=== PATIENT | male | born 1980 | race Caucasian/White ===

== ENCOUNTER 2016-10-11 20:53 | Emergency (ER) | payer MEDICAID ==
[2016-10-11 21:00] VITALS: TEMP 98.1
--- NOTE | 2016-10-11 21:27 | CPEKG ---
Heart Rate: 84 RR Interval: 714 P-R Interval: 156 QRSD Interval: 84 QT Interval: 364 QTC Interval: 431 P [place]: 41 QRS [place]: 45 T Wave [place]: 20 EKG Severity - NORMAL ECG - EKG Impression: SINUS RHYTHM Electronically Signed By: Oumou Glass 12-Oct-2016 07:17:43
[2016-10-11 22:08] LABS: % IMMATURE GRANULYOCYTES 0.3 % (0.0-1.1); ABSOLUTE IMMATURE GRANULOCYTES 0.02 10^3/uL (0.00-0.10); ADD DIFF? NO; ADD MORPH? NO; ADD SCAN? NO; ATYPICAL LYMPHOCYTE FLAG 10 (0-99); FRAGMENT RBC FLAG 0 (0-99); HEMATOCRIT 44.7 % (40.0-51.0); HEMOGLOBIN 16.2 g/dL (13.7-17.5); LEFT SHIFT FLG 0 (0-99); LIPEMIA HEMOLYSIS FLAG 90 (0-99); MEAN CELL HEMOGLOBIN 32.3 pg (27.9-34.1); MEAN CELL HEMOGLOBIN CONCENTR. 36.2 g/dL (32.4-36.7); MEAN PLATELET VOLUME 9.2 fL (8.7-11.7); PLATELET CLUMPS FLAG 0 (0-99); PLATELET COUNT 255 10^3/uL (150-400); RED BLOOD CELL COUNT 5.02 10^6/uL (4.40-6.38); RED CELL DISTRIBUTION WIDTH 12.2 % (11.5-15.2)
[2016-10-11] MEDS ORDERED: LORazepam 2 MG/ML INJ IVP ONE (22:26)
--- NOTE | 2016-10-11 22:31 | EDPHY ---
H & P Stated Complaint: Anxiety, nausea, high BP, chest pain Time Seen by Provider: 10/11/16 22:17 HPI/ROS: HPI The patient presents with anxiety, nausea, cold sweats which have been present for the last 1 day in the setting of increased social stressors. His symptoms have been intermittent, moderate in severity under associated with elevated blood pressure. He has a blood pressure cuff at home which he uses sporadically. His blood pressures are normally 130s over 90s. However today they were as high as 150/130. He does not have any chest pain. He does have some left-sided back pain which has been present for today and has been intermittent.. REVIEW OF SYSTEMS Constitutional: No fever, no chills. Eyes: No discharge. ENT: No sore throat. Cardiovascular: No chest pain, no palpitations. Respiratory: No cough, no shortness of breath. Gastrointestinal: No abdominal pain, no vomiting. Genitourinary: No hematuria. Musculoskeletal: No back pain. Skin: No rashes. Neurological: No headache. PMHx: Anxiety, sees a therapist, has been recommended to start a medication though has not been able to see a prescribing physician yet. Soc Hx: No alcohol use, occasional marijuana use though none in the last few days PHYSICAL General Appearance: Alert, no distress Eyes: Pupils equal and round no pallor or injection ENT, Mouth: Mucous membranes moist Respiratory: There are no retractions, lungs are clear to auscultation Cardiovascular: Regular rate and rhythm Gastrointestinal: Abdomen is soft and non-tender, no masses, bowel sounds normal Neurological: A&O, moves all extremities Skin: Warm and dry, no rashes Musculoskeletal: Neck is supple non tender Extremities: symmetrical, full range of motion Psychiatric: Patient is oriented X 3, there is no agitation Source: Patient Exam Limitations: No limitations - Personal History Current Tetanus/Diphtheria Vaccine: Yes Current Tetanus Diphtheria and Acellular Pertussis (TDAP): Yes - Medical/Surgical History Hx Asthma: Yes Hx Chronic Respiratory Disease: No Hx Diabetes: No Hx Cardiac Disease: No Hx Renal Disease: No Hx Cirrhosis: No Hx Alcoholism: No Hx HIV/AIDS: No Hx Splenectomy or Spleen Trauma: No Other PMH: anxiety, pulmonary stenosis as child - Social History Smoking Status: Current every day smoker Constitutional: Initial Vital Signs Temperature (C) 36.7 C 10/11/16 20:56 Heart Rate 103 H 05/28/17 20:56 Respiratory Rate 16 10/11/16 20:56 Blood Pressure 176/114 H 10/11/16 20:56 O2 Sat (%) 99 10/11/16 20:56 O2 Delivery Mode Room Air Allergies/Adverse Reactions: Antihistamines - Alkylamine Allergy (Verified 10/11/16 20:56) Home Medications: Medication Instructions Recorded Lorazepam 1 mg PO BID PRN #8 tablet 10/11/16 Medical Decision Making - Diagnostics EKG Interpretation: EKG: Complete interpretation has been separately recorded in the [facility] archive. Summary impression: Normal sinus rhythm Differential Diagnosis: This is a 36-year-old male with history of anxiety who presents with increased anxiety associated with nausea and hypertension today. On exam, he is well- appearing, his blood pressure is slightly elevated. This could be related to anxiety, I doubt CAD as a cause. Plan for basic labs, EKG, trial of lorazepam. In the emergency room, labs were unremarkable. EKG was normal. 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 He was given a dose of Ativan with improvement in his blood pressure to a normal level. I feel he is likely suffering from increased anxiety due to increasing social stressors in his life. As he is up well followed by a therapist and plans to see a prescriber shortly. I will give him a short course of Ativan to treat his symptoms. He will be discharged from the ER in good condition. - Data Points Laboratory Results: Laboratory Results 10/11/16 21:53 10/11/16 21:53 10/11/16 10/11/16 21:53 21:53 WBC 7.55 10^3/uL 10^3/uL (3.80-9.50) RBC 5.02 10^6/uL 10^6/uL (4.40-6.38) Hgb 16.2 g/dL g/dL (13.7-17.5) Hct 44.7 % % (40.0-51.0) MCV 89.0 fL fL (81.5-99.8) MCH 32.3 pg pg (27.9-34.1) MCHC 36.2 g/dL g/dL (32.4-36.7) RDW 12.2 % % (11.5-15.2) Plt Count 255 10^3/uL 10^3/uL (150-400) MPV 9.2 fL fL (8.7-11.7) Neut % (Auto) 56.2 % % (39.3-74.2) Lymph % (Auto) 31.1 % % (15.0-45.0) [place] % (Auto) 8.1 % % (4.5-13.0) Eos % (Auto) 3.6 % % (0.6-7.6) Baso % (Auto) 0.7 % % (0.3-1.7) Nucleat RBC Rel Count 0.0 % % (0.0-0.2) Absolute Neuts (auto) 4.25 10^3/uL 10^3/uL (1.70-6.50) Absolute Lymphs (auto) 2.35 10^3/uL 10^3/uL (1.00-3.00) Absolute Monos (auto) 0.61 10^3/uL 10^3/uL (0.30-0.80) Absolute Eos (auto) 0.27 10^3/uL 10^3/uL (0.03-0.40) Absolute Basos (auto) 0.05 10^3/uL 10^3/uL (0.02-0.10) Absolute Nucleated RBC 0.00 10^3/uL 10^3/uL (0-0.01) Immature Gran % 0.3 % % (0.0-1.1) Immature Gran # 0.02 10^3/uL 10^3/uL (0.00-0.10) Sodium 138 mEq/L mEq/L (134-144) Potassium 4.2 mEq/L mEq/L (3.5-5.2) Chloride 108 mEq/L mEq/L (97-110) Carbon Dioxide 24 mEq/l mEq/l (22-31) Anion Gap 6 mEq/L L mEq/L (8-16) BUN 16 mg/dL mg/dL (7-23) Creatinine 1.2 mg/dL mg/dL (0.7-1.3) Estimated GFR > 60 Glucose 82 mg/dL mg/dL (70-100) Calcium 9.5 mg/dL mg/dL (8.5-10.4) Troponin I < 0.012 ng/mL ng/mL (0-0.034) Medications Given: Discontinued Medications Lorazepam (Ativan Injection) 1 mg IVP EDNOW ONE Stop: 10/11/16 22:27 Last Admin: 10/11/16 22:41 Dose: 1 mg Departure - Departure Disposition: Home, Routine, Self-Care Clinical Impression: Anxiety, Nausea, Elevated blood pressure reading Condition: Good Instructions: Anxiety (ED) Referrals: Carina Humphreys MD [[facility] [place] Primary Care Provider] - As per Instructions Prescriptions: Lorazepam 1 mg PO BID PRN #8 tablet PRN Reason: Anxiety
[2016-10-11 22:41] LABS: ANION GAP 6 mEq/L (8-16); CALCIUM 9.5 mg/dL (8.5-10.4); CARBON DIOXIDE 24 mEq/l (22-31); CHLORIDE 108 mEq/L (97-110); CREATININE 1.2 mg/dL (0.7-1.3); GLOMERULAR FILTRATION RATE > 60; GLUCOSE 82 mg/dL (70-100); POTASSIUM 4.2 mEq/L (3.5-5.2); SODIUM 138 mEq/L (134-144)
[2016-10-11 22:53] LABS: TROPONIN I < 0.012 ng/mL (0-0.034)
[2016-10-11 23:01] VITALS: BP 144/96; PULSE 84; RESP 14; O2SAT 96
== END 2016-10-11 23:17 | disposition home or self-care (01) ==
DX: F41.9 Anxiety disorder, unspecified (principal); R11.0 Nausea; R03.0 Elevated blood-pressure reading, without diagnosis of hypertension; J45.909 Unspecified asthma, uncomplicated; F17.200 Nicotine dependence, unspecified, uncomplicated
CPT/HCPCS: 96374; J2060

== ENCOUNTER 2016-12-12 13:37 | Emergency (ER) | payer MEDICAID, OTHER ==
--- NOTE | 2016-12-12 13:52 | EDPHY ---
H & P Stated Complaint: stabbing intermittent pains l ear Time Seen by Provider: 12/12/16 13:51 - Personal History Current Tetanus/Diphtheria Vaccine: Yes - Medical/Surgical History Hx Asthma: Yes Hx Chronic Respiratory Disease: No Hx Diabetes: No Hx Cardiac Disease: No Hx Renal Disease: No Hx Cirrhosis: No Hx Alcoholism: No Hx HIV/AIDS: No Hx Splenectomy or Spleen Trauma: No Other PMH: anxiety, pulmonary stenosis as child - Social History Smoking Status: Current every day smoker Constitutional: Initial Vital Signs Temperature (C) 37 C 12/12/16 13:40 Heart Rate 86 12/12/16 13:40 Respiratory Rate 17 12/12/16 13:40 Blood Pressure 158/102 H 12/12/16 13:40 O2 Sat (%) 96 12/12/16 13:40 O2 Delivery Mode Room Air Allergies/Adverse Reactions: Antihistamines - Alkylamine Allergy (Verified 10/11/16 20:56) Home Medications: Medication Instructions Recorded Lorazepam 1 mg PO BID PRN #8 tablet 10/11/16 Fluticasone Nasal [Flonase Nasal 2 sprays NASAL DAILY #1 mdi 12/12/16 [place] (RX)] oxyCODONE IR [Oxycodone Ir (*)] 5 - 10 mg PO Q6 PRN #20 tab 12/12/16 Medical Decision Making ED Course/Re-evaluation: CHIEF COMPLAINT: Left ear pain HISTORY OF PRESENT ILLNESS: 36-year-old gentleman who woke in the middle the night with sharp left ear pain that is intermittent. He has had some sinus and nasal congestion and maybe some allergies associated with that but denies any swimming or barotrauma. REVIEW OF SYSTEMS: A 10 point review of systems was performed and is negative with the exception of the elements mentioned in the history of present illness. PHYSICAL EXAM: HR, BP, O2 Sat, RR. Temp noted General Appearance: Alert, well hydrated, appropriate, and non-toxic appearing. Head: Atraumatic without scalp tenderness or obvious injury Eyes: Pupils equal, round, reactive to light and accommodation, EOMI, no trauma , no injection. Ears: Left ear is bulging slightly and has fluid behind the drum. There is no evidence of perforation there is no evidence of erythema. Right ear normal. Nose: Atraumatic, no rhinorrhea, clear. Throat: There is no erythema or exudates, no lesions, normal tonsils, mucus membranes moist. Neck: Supple, 2+ carotid upstroke, nontender, no lymphadenopathy. Respiratory: No retractions, no distress, no wheezes, and no accessory muscle use. Lungs are clear to auscultation bilaterally. Cardiovascular: Regular rate and rhythm, no murmurs, rubs, or gallops. Bilateral carotid, radial, dorsalis pedis, and posterior tibial pulses intact. Good capillary refill all extremities. Gastrointestinal: Abdomen is soft, nontender, non-distended, no masses, no rebound, no guarding, no peritoneal signs. Musculoskeletal: Normal active ROM of all extremities, atraumatic. Neurological: Alert, appropriate, and interactive. The patient has normal DTRs and non-focal cranial nerves, motor, sensory, and cerebellar exam. Skin: No rashes, good turgor, no nodules on palpation. Past medical history: Peptic ulcer disease Past surgical history: Noncontributory Family history: Noncontributory Social history: , employed, does not abuse tobacco drugs or alcohol DIFFERENTIAL DIAGNOSIS: Includes but is not limited to: Otitis media, otitis externa, barotrauma, eustachian tube congestion MEDICAL DECISION MAKING: This patient seems to have an infectious cause of eardrum bulging. He has sinus and nasal congestion. I will start him on Mucinex, Flonase, and some pain medicine until the ear pain resolves. He will follow up with regular doctor. Departure - Departure Disposition: Home, Routine, Self-Care Clinical Impression: Ear congestion Qualifiers: Laterality: left Qualified Code(s): H93.8X2 - Other specified disorders of left ear Condition: Good Instructions: Earache (ED) Additional Instructions: By plain Mucinex [id number] intake 1200 mg of guaifenesin in the morning and 1200 mg at night and drink plenty of water. Referrals: Carina Humphreys MD [Primary Care Provider] - 2-3 days, if not improved Prescriptions: Fluticasone Nasal [Flonase Nasal [place] (RX)] 2 sprays NASAL DAILY #1 mdi oxyCODONE IR [Oxycodone Ir (*)] 5 - 10 mg PO Q6 PRN #20 tab PRN Reason: Pain, Severe
[2016-12-12 14:18] VITALS: BP 147/96; PULSE 93; RESP 20; TEMP 98.4; O2SAT 95
== END 2016-12-12 14:18 | disposition home or self-care (01) ==
DX: H93.8X2 Other specified disorders of left ear (principal); F17.200 Nicotine dependence, unspecified, uncomplicated

== ENCOUNTER 2017-09-17 15:52 | Emergency (ER) | payer MEDICAID ==
--- NOTE | 2017-09-17 16:38 | EDPHY ---
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 He is trying to stop and has not used For last 24 hr. He is experiencing full body pain as well as insomnia and anxiety. Some mild diarrhea but no vomiting. Also watery eyes and nose. He is here requesting medication to help him withdrawal. He has already joined a group and has a sponsor. He does not wish to go to the [facility]. REVIEW OF SYSTEMS: Constitutional: denies: chills, fever, recent illness, recent injury EENTM: See HPI Respiratory: denies: cough, shortness of breath Cardiac: denies: chest pain, irregular heart rate, lightheadedness, palpitations Gastrointestinal/Abdominal: See HPI Genitourinary: denies: dysuria, frequency, hematuria, pain Musculoskeletal: See HPI Skin: denies: lesions, rash, jaundice, bruising Neurological: denies: headache, numbness, paresthesia, tingling, dizziness, weakness Hematologic/Lymphatic: denies: blood clots, easy bleeding, easy bruising Immunologic/allergic: denies: HIV/AIDS, transplant EXAM: GENERAL: Well-appearing, well-nourished and in no acute distress. HEAD: Atraumatic, normocephalic. EYES: Pupils equal round and reactive to light, extraocular movements intact, sclera anicteric, conjunctiva are normal. ENT: TMs normal, nares patent, oropharynx clear without exudates. Moist mucous membranes. NECK: Normal range of motion, supple without lymphadenopathy or JVD. LUNGS: Breath sounds clear to auscultation bilaterally and equal. No wheezes rales or rhonchi. HEART: Regular rate and rhythm without murmurs, rubs or gallops. ABDOMEN: Soft, nontender, normoactive bowel sounds. No guarding, no rebound. No masses appreciated. BACK: No CVA tenderness, no spinal tenderness, step-offs or deformities EXTREMITIES: Normal range of motion, no pitting or edema. No clubbing or cyanosis. NEUROLOGICAL: Cranial nerves II through XII grossly intact. Normal speech, normal gait. 5/5 strength, normal movement in all extremities, normal sensation PSYCH: Normal mood, normal affect. SKIN: Warm, dry, normal turgor, no visible rashes or lesions. Source: Patient - Medical/Surgical History Hx Asthma: Yes Hx Chronic Respiratory Disease: No Hx Diabetes: No Hx Cardiac Disease: No Hx Renal Disease: No Hx Cirrhosis: No Hx Alcoholism: No Hx HIV/AIDS: No Hx Splenectomy or Spleen Trauma: No Other PMH: anxiety, pulmonary stenosis as child. heroine abuse - Family History Significant Family History: No pertinent family hx - Social History Smoking Status: Current every day smoker Alcohol Use: Sober Drug Use: None Constitutional: Initial Vital Signs Temperature (C) 36.7 C 09/17/17 15:55 Heart Rate 108 H 09/17/17 15:55 Respiratory Rate 20 09/17/17 15:55 Blood Pressure 140/103 H 09/17/17 15:55 O2 Sat (%) 98 09/17/17 15:55 O2 Delivery Mode Room Air Allergies/Adverse Reactions: Antihistamines - Alkylamine Allergy (Verified 09/17/17 15:54) Home Medications: Medication Instructions Recorded Gabapentin [Neurontin 400 MG (*)] 400 mg PO Q6 PRN #30 cap 09/17/17 Ondansetron Odt [Zofran Odt 4 mg 4 mg PO Q4 PRN #20 tab 09/17/17 (RX)] clonIDINE [Catapres (*)] 0.1 mg PO Q6-8PRN PRN #30 tab 09/17/17 Medical Decision Making ED Course/Re-evaluation: I will treat the patient at home with p.r.n. Clonidine and gabapentin and Zofran. He has a support group already lined up. He does not wish to have further treatment or workup. He does not wish to go to the [facility]. Differential Diagnosis: Partial list of the Differential diagnosis considered include but were not limited to; opiate withdrawal, anxiety, polysubstance abuse and although unlikely based on the history and physical exam, I also considered infection, arrhythmia, acute coronary disease, electrolyte abnormality. I discussed these differential diagnoses and the plan with the patient as well as the usual and expected course. The patient understands that the diagnosis is provisional and that in medicine we are not always correct and that further workup is often warranted. Usual and customary warnings were given. All of the patient's questions were answered. The patient was instructed to return to the emergency department should the symptoms at all worsen or return, otherwise to followup with the physician as we discussed. Departure - Departure Disposition: Home, Routine, Self-Care Clinical Impression: Heroin withdrawal Condition: Fair Instructions: Narcotic Abuse (ED) Referrals: NONE *PRIMARY CARE P,. [Primary Care Provider] - As per Instructions Prescriptions: clonIDINE [Catapres (*)] 0.1 mg PO Q6-8PRN PRN #30 tab PRN Reason: Pain and tremors Gabapentin [Neurontin 400 MG (*)] 400 mg PO Q6 PRN #30 cap PRN Reason: Anxiety and insomnia Ondansetron Odt [Zofran Odt 4 mg (RX)] 4 mg PO Q4 PRN #20 tab PRN Reason: Nausea & Vomiting
[2017-09-17 16:49] VITALS: BP 130/66
== END 2017-09-17 16:49 | disposition home or self-care (01) ==
DX: F11.23 Opioid dependence with withdrawal (principal); J45.909 Unspecified asthma, uncomplicated; F17.200 Nicotine dependence, unspecified, uncomplicated

== ENCOUNTER 2018-01-01 | Emergency (ER) | payer OTHER, MEDICAID | END 2018-01-01 23:14 | disposition home or self-care (01) ==